=== PATIENT | male | born 1955 | race Caucasian/White ===

== ENCOUNTER 2021-09-19 07:14 | Day surgery (SDC) | payer MEDICARE, OTHER ==
[~2021-09-19] VITALS: Ht 167.6 cm; Wt 80.2 kg
[~2021-09-19 07:14] MED LIST: ALBUTEROL SULFATE 2.5 MG/0.5 ML INH NEB SOLN NEB ONE; ATOR1TAB21; ECOT81TA5 PO; LIDOCAINE 4% INJ 5ML AMP NEB ONE; LR 1,000 ML IV ONE
[2021-09-19] MEDS ORDERED: propofoL 200 MG/20 ML VIAL As Ordered ONE (08:18)
[2021-09-19] MEDS ORDERED: LIDOCAINE 2% 100MG/5ML SDV (FOR ANES.) As Ordered ONE (08:18)
[2021-09-19] MEDS ORDERED: dexameTHASONE 4 MG/ML 1ML VIAL (J1100 PER 1MG) As Ordered ONE (08:19)
[2021-09-19] MEDS ORDERED: ONDANSETRON 4MG/2ML VIAL As Ordered ONE (08:19)
[2021-09-19] MEDS ORDERED: fentaNYL 100 MCG/2 ML INJECTION As Ordered ONE (08:19)
[2021-09-19] MEDS ORDERED: MIDAZOLAM INJ 2MG/2ML VIAL (J2250 PER 1MG) As Ordered ONE (08:19)
[2021-09-19] MEDS ORDERED: ROCURONIUM BROMIDE 50 MG/5 ML VIAL As Ordered ONE (08:19)
[2021-09-19] MEDS ORDERED: SUGAMMADEX SODIUM 500 MG/5 ML VIAL (BRIDION) As Ordered ONE (08:20)
[2021-09-19] MEDS ORDERED: KETOROLAC 60MG 2ML VIAL As Ordered ONE (08:25)
[2021-09-19] MEDS ORDERED: CETACAINE SPRAY 5GM As Ordered ONE (09:34)
[2021-09-19] MEDS ORDERED: EPINEPHrine 1MG/10ML SYRINGE 1.5IN As Ordered ONE (09:35)
[2021-09-19] MEDS ORDERED: fentaNYL 100 MCG/2 ML INJECTION IV PRN (12:00)
[2021-09-19] MEDS ORDERED: LR 1,000 ML IV SCH (12:00)
[2021-09-19] MEDS ORDERED: oxyCODONE 5MG TAB PO PRN (12:00)
[2021-09-19] MEDS ORDERED: ONDANSETRON 4MG/2ML VIAL IV PRN (12:00)
[2021-09-19 12:40] VITALS: BP 161/78
== END 2021-09-19 12:50 | disposition home or self-care (01) ==
LOC: M SDC 07:14
PROVIDERS: ATTEND Internal Medicine Pulmonary Disease
DX: R91.8 Other nonspecific abnormal finding of lung field (principal); J44.9 Chronic obstructive pulmonary disease, unspecified; E78.5 Hyperlipidemia, unspecified; Z87.891 Personal history of nicotine dependence; Z79.899 Other long term (current) drug therapy; Z79.01 Long term (current) use of anticoagulants
CPT/HCPCS: 31627; 31628; 31654; 71045; 76000; 88108; 88173; 88305; 88313; 93005; J1100; J1885; J2250; J2405; J3010; S2900

== ENCOUNTER → 2022-06-14 | Outpatient (CLI) | payer BC, MEDICARE, OTHER ==
[~2022-06-14] MED LIST changes: -ALBUTEROL SULFATE 2.5 MG/0.5 ML INH NEB SOLN NEB ONE; -LIDOCAINE 4% INJ 5ML AMP NEB ONE; -LR 1,000 ML IV ONE
== END ==
LOC: M RAD 08:16
PROVIDERS: ATTEND Internal Medicine Pulmonary Disease
DX: R91.8 Other nonspecific abnormal finding of lung field (principal)